=== PATIENT | female | born 1940 | race Caucasian/White ===

== ENCOUNTER 2018-08-29 19:51 | Emergency (ER) | payer MEDICARE ==
[~2018-08-29] VITALS: Ht 160 cm; Wt 67.1 kg
[2018-08-29] MEDS ORDERED: ORPHENADRINE CITRATE 30 MG/ML VIAL IM ONE (20:45)
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
== END 2018-08-29 22:15 | disposition home or self-care (01) ==
LOC: ER 19:51
DX: M54.6 Pain in thoracic spine (principal); M54.5 Low back pain; M47.814 Spondylosis without myelopathy or radiculopathy, thoracic region; M47.816 Spondylosis without myelopathy or radiculopathy, lumbar region; M62.838 Other muscle spasm; M62.830 Muscle spasm of back; V43.52XA Car driver injured in collision with other type car in traffic accident, initial encounter; Y92.488 Other paved roadways as the place of occurrence of the external cause; E11.9 Type 2 diabetes mellitus without complications
CPT/HCPCS: 70450; 71046; 72070; 72100; 72125; 99283; J2360